=== PATIENT | female | born 1970 | race Caucasian/White ===

== ENCOUNTER 2020-09-05 12:01 | Emergency (ER) | payer MEDICAID ==
--- NOTE | 2020-09-05 14:07 | ED Physician Documentation ---
PD HPI HEENT - Stated complaint Stated Complaint: RUNNY NOSE,SOAR THROAT,FEVER - Chief complaint Chief Complaint: Resp - History obtained from History obtained from: Patient - Additional information Additional information: Healthy 50-year-old woman got sick this morning with runny nose, sore throat, body aches, low-grade fever. She is worried about coronavirus since she plans to have [place] with her family. Review of Systems Constitutional: reports: Chills, Myalgias Nose: reports: Rhinorrhea / runny nose Throat: reports: Sore throat Respiratory: denies: Cough PD PAST MEDICAL HISTORY - Present Medications Home Medications: Ambulatory Orders Medication Instructions Recorded Confirmed Sertraline [Zoloft] 1 tab PO DAILY 09/05/20 09/05/20 cloNIDine [Catapres] 0.2 mg PO DAILY 09/05/20 09/05/20 - Allergies Allergies/Adverse Reactions: Allergies Allergy/AdvReac Type Severity Reaction Status Date / Time No Known Drug Allergies Allergy Verified 09/05/20 12:25 PD ED PE NORMAL - Vitals Vital signs reviewed: Yes - General General: Alert and oriented X 3, No acute distress - Neck Neck: Supple, no meningeal sign - Neuro Neuro: Alert and oriented X 3, Normal speech Results - Vitals Vitals: Vital Signs - 24 hr 09/05/20 12:21 Temperature 36.4 C L Heart Rate 73 Respiratory 18 Rate Blood Pressure 130/71 O2 Saturation 96 Oxygen O2 Source Room air Departure - Departure Disposition: 01 Home, Self Care Clinical Impression: Upper respiratory tract infection Qualifiers: URI type: unspecified viral URI Qualified Code(s): J06.9 - Acute upper respiratory infection, unspecified Condition: Good Record reviewed to determine appropriate education?: Yes Instructions: ED Viral Syndrome Comments: You have a Covid test pending. You need to self quarantine until the result is done and negative. Do not leave your house. Do not get near anybody. The results should be done in 48 to 72 hours. We will call with a positive result, the fastest way to get a negative result for confirmation though is to go to the hospital website at [email or web address], click on the my [facility] tab and sign up for the patient portal. If any friends or family get sick and would like to have a Covid test done, but do not have signs or symptoms that would necessitate being hospitalized, we encourage testing through our coronavirus swabbing station, call [phone] to schedule an appointment.
[2020-09-05 14:33] VITALS: BP 118/67
== END 2020-09-05 14:34 | disposition home or self-care (01) ==
LOC: ED 12:01
DX: J06.9 Acute upper respiratory infection, unspecified (principal); Z20.828 Contact with and (suspected) exposure to other viral communicable diseases
CPT/HCPCS: 99282; 99283

== ENCOUNTER 2020-10-25 08:00 | Outpatient (CLI) | payer MEDICAID ==
--- NOTE | 2020-10-25 16:49 | XRAY Report ---
PROCEDURE: Knee 4 View LT INDICATIONS: STRAIN OF UNSPECIFIED MUSCLES AND TENDONS OF L LOWER LEG TECHNIQUE: 4 views of the left knee(s) were acquired. COMPARISON: None. FINDINGS: Bones: No fractures or dislocations. No suspicious bony lesions. Mild periarticular osteophyte for mation. Soft tissues: No joint effusion. No suspicious soft tissue calcifications. IMPRESSION: Osteoarthritis. No acute fracture. No osseous lesion. If symptoms and/or clinical suspic ion for pathology continue, further assessment with repeat plain films, or advanced imaging (e.g., CT , MRI, or bone scan) is recommended for further assessment. Reviewed by: Lulu Arriola MD on 10/25/2020 4:48 PM PST Approved by: Lulu Arriola MD on 10/25/2020 4:48 PM PST Station ID: [id number]
== END 2020-10-25 23:59 | disposition home or self-care (01) ==
LOC: DI.N 08:00
PROVIDERS: ATTEND Nurse Practitioner
DX: S86.912A Strain of unspecified muscle(s) and tendon(s) at lower leg level, left leg, initial encounter (principal); M17.12 Unilateral primary osteoarthritis, left knee

== ENCOUNTER 2020-12-20 11:47 | Day surgery (SDC) | payer MEDICAID ==
[2020-12-20] MEDS ORDERED: LACTATED RINGERS 1,000 ML IV ONE ×2 (11:48→13:54)
[2020-12-20 12:12] LABS: HCG UR QUAL NEGATIVE
--- NOTE | 2020-12-20 12:45 | ANESTHESIA ---
Pre-Anesthesia VS, & Labs - Diagnosis Loose stools, diarrhea - Procedure colonoscopy Vital Signs: Temp Pulse Resp BP Pulse Ox 36.7 C 83 12 138/82 H 96 12/20/20 11:48 12/20/20 11:48 12/20/20 11:48 12/20/20 11:48 12/20/20 11:48 Height: 5 ft 4 in Weight (kg): 85 kg Body Mass Index: 32.1 BMI Classification: Obese - NPO >8 hours - Is Patient ?: No Home Medications and Allergies Sertraline [Zoloft] 200 tab PO DAILY 09/05/20 cloNIDine [Catapres] 0.2 mg PO DAILY 09/05/20 Allergies/Adverse Reactions: Allergies Allergy/AdvReac Type Severity Reaction Status Date / Time No Known Drug Allergies Allergy Verified 09/05/20 12:25 Anes History & Medical History - Anesthetic History Anesthesia Complications: reports: No previous complications - Medical History Cardiovascular: reports: None Pulmonary: reports: None Gastrointestinal: reports: Other (diarrhea) Urinary: reports: Kidney stones Neuro: reports: None Musculoskeletal: reports: None Endocrine/Autoimmune: reports: None Blood Disorders: reports: None Skin: reports: None Smoking Status: Never smoker Psychosocial: reports: Depression, Anxiety History of Cancer?: No - Surgical History General: reports: Cholecystectomy Eyes Ears Nose Throat (EENT): reports: Tonsil/Adenoidectomy Urologic: reports: Ureterolithotomy (stones) Gynecologic: reports: Endometrial ablation, Dilation and currettage Exam General: Alert, Oriented x3, Cooperative, No acute distress Dental: WNL Mouth Openin Fingerbreadth Neck Mobility: Normal Mallampati classification: I Thyromental Distance: 4-6 cm Mental/Cognitive Status: Alert/Oriented X3, Normal for patient Plan Anesthesia Type: MAC Consent for Procedure(s) Verified and Reviewed: Yes Code Status: Attempt Resuscitation ASA classification: 2-Mild systemic disease Is this case an emergency?: No
[2020-12-20] MEDS ORDERED: PROPOFOL 500 MG/50 ML 500 MG/50 ML VIAL ONE (13:04)
[2020-12-20] MEDS ORDERED: LIDOCAINE-MPF 2% 5 ML VIAL ONE (13:04)
[2020-12-20] MEDS ORDERED: MIDAZOLAM 2 MG/2 ML VIAL ONE (13:05)
[2020-12-20] MEDS ORDERED: fentaNYL 100 MCG/2 ML VIAL ONE (13:05)
[2020-12-20 14:21] VITALS: BP 111/90
--- NOTE | 2020-12-20 20:17 | ANESTHESIA POST OP EVALUATION ---
Anesthesia Post Eval - Post Anesthesia Eval Vitals: Last Vital Signs Temp 36.5 C 12/20/20 14:20 Pulse 63 12/20/20 14:20 Resp 12 12/20/20 14:20 BP 111/90 H 12/20/20 14:20 Pulse Ox 100 12/20/20 14:20 CV Function Including HR & BP: Stable Pain Control: Satisfactory Nausea & Vomiting: Negative Mental Status: Baseline Respiratory Status: Airway Patent Hydration Status: Satisfactory Anesthesia Complications: None
== END 2020-12-20 11:48 | disposition home or self-care (01) ==
LOC: SDS 11:47
PROVIDERS: ATTEND Surgery
PROC: 0DBE8ZX Excision of Large Intestine, Via Natural or Artificial Opening Endoscopic, Diagnostic (ICD-10-PCS; principal; 2020-12-20 12:30)
DX: R19.7 Diarrhea, unspecified (principal); K57.30 Diverticulosis of large intestine without perforation or abscess without bleeding; F41.8 Other specified anxiety disorders; E66.9 Obesity, unspecified; Z68.32 Body mass index [BMI] 32.0-32.9, adult; Z83.79 Family history of other diseases of the digestive system; Z90.49 Acquired absence of other specified parts of digestive tract
CPT/HCPCS: 45380; 81025; J7120

== ENCOUNTER 2021-07-10 08:00 | Outpatient (CLI) | payer MEDICAID | END 2021-07-10 08:01 | disposition home or self-care (01) | LOC: LAB 08:00 | PROVIDERS: ATTEND Physician Assistant Medical | DX: N20.9 Urinary calculus, unspecified (principal) | CPT/HCPCS: 36415; 80048; 85025; 87086 ==

== ENCOUNTER 2021-07-10 13:30 | Outpatient (CLI) | payer MEDICAID ==
[2021-07-10 18:23] LABS: BASOPHILS % (AUTO) 0.3 %; EOSINOPHILS # (AUTO) 0.1 10^3/uL (0.0-0.7); EOSINOPHILS % (AUTO) 0.8 %; HCT - HEMATOCRIT 42.3 % (37.0-47.0); HGB - HEMOGLOBIN 13.1 g/dL (12.0-16.0); LYMPHOCYTES # (AUTO) 1.9 10^3/uL (1.5-3.5); LYMPHOCYTES % (AUTO) 14.4 %; MEAN CORPUSCULAR HEMOGLOBIN 25.8 pg (27.0-31.0); MEAN CORPUSCULAR VOLUME 83.4 fL (81.0-99.0); MEAN PLATELET VOLUME 10.2 fL (7.9-10.8); MONOCYTES # (AUTO) 0.6 10^3/uL (0.0-1.0); MONOCYTES % (AUTO) 4.8 %; NEUTROPHILS # (AUTO) 10.4 10^3/uL (1.5-6.6); NEUTROPHILS % (AUTO) 78.6 %; PLT - PLATELET COUNT 328 10^3/uL (130-450); RED BLOOD COUNT 5.07 10^6/uL (4.20-5.40); RED CELL DISTRIBUTION WIDTH 14.3 % (12.0-15.0); WHITE BLOOD COUNT 13.3 x10^3/uL (4.8-10.8)
[2021-07-10 18:34] LABS: CALCIUM 9.5 mg/dL (8.5-10.3); CREATININE 0.6 mg/dL (0.4-1.0); POTASSIUM 4.3 mmol/L (3.5-5.0)
== END 2021-07-10 23:59 ==
LOC: LAB.N 13:30
PROVIDERS: ATTEND Physician Assistant Medical
DX: N20.9 Urinary calculus, unspecified (principal)
CPT/HCPCS: 36415; 80048; 85025

== ENCOUNTER 2021-07-20 09:03 | Outpatient (CLI) | payer MEDICAID ==
--- NOTE | 2021-07-20 09:47 | CT Report ---
PROCEDURE: Abdomen/Pelvis WO INDICATIONS: UROLITHIASIS TECHNIQUE: Noncontrast 5 mm thick sections acquired from the diaphragms to the symphysis. 5 mm coronal and sagi ttal reformats were then performed. For radiation dose reduction, the following was used: automated exposure control, adjustment of mA and/or kV according to patient size. COMPARISON: None. FINDINGS: ABDOMEN: Lung bases: No acute findings. Heart:Normal. Liver: Normal. Gallbladder: Surgically absent Bile ducts: Normal. Pancreas: Normal. Spleen: Normal. Adrenals: Normal. Kidneys and ureters: Normal. Stomach and duodenum: Normal. Bowel: Normal. Other: No free fluid or air. Abdominal nodes: Normal. Aorta: Normal in size. IVC: Normal. Ventral wall: Normal. PELVIS: Bladder: Normal. Pelvic nodes: Normal. Inguinal regions: No hernia. Bones: No vertebral body compression fracture. No suspicious bone lesion. IMPRESSION: No urolithiasis. No evidence of urinary obstruction Status post cholecystectomy. Reviewed by: Spencer Cotton MD on 07/20/2021 9:46 AM PDT Approved by: Spencer Cotton MD on 07/20/2021 9:46 AM PDT Station ID: [id number]
== END 2021-07-20 09:04 | disposition home or self-care (01) ==
LOC: DI 09:03
PROVIDERS: ATTEND Physician Assistant Medical
DX: N20.9 Urinary calculus, unspecified (principal); Z90.49 Acquired absence of other specified parts of digestive tract

== ENCOUNTER 2021-12-01 08:00 | Outpatient (CLI) | payer MEDICAID ==
--- NOTE | 2021-12-01 14:25 | XRAY Report ---
PROCEDURE: Cervical Spine 2 View INDICATIONS: BILAT ARM NUMBNESS TECHNIQUE: 3 view(s) of the cervical spine were acquired. COMPARISON: None. FINDINGS: C-SPINE: No acute, displaced fracture or malalignment. The vertebral body heights and intervertebral disc spaces are maintained. SOFT TISSUES: No prevertebral soft tissue thickening. IMPRESSION: 1.No acute osseous abnormality of the cervical spine. Reviewed by: Leonid Gomez MD on 12/01/2021 2:24 PM PDT Approved by: Leonid Gomez MD on 12/01/2021 2:24 PM PDT Station ID: [id number]
== END 2021-12-01 23:59 | disposition home or self-care (01) ==
LOC: DI.WOS 08:00
PROVIDERS: ATTEND Physician Assistant
DX: R20.0 Anesthesia of skin (principal)

== ENCOUNTER 2022-09-11 16:29 | Emergency (ER) | payer MEDICAID, OTHER ==
[2022-09-11 16:40] VITALS: BP 122/45
[2022-09-11] MEDS ORDERED: oxyCODONE 5 MG TABLET PO STA (18:20)
--- NOTE | 2022-09-11 18:22 | ED Physician Documentation ---
History of Present Illness - Stated complaint Stated Complaint: THROAT PX/HEAT - Chief complaint Chief Complaint: Heent - History obtained from History obtained from: Patient - History of Present Illness Timing: How many days ago (several) Pain level max: 7 Pain level now: 7 - Additonal information Additional information: 52-year-old female presents to the emergency department complaining of left- sided neck pain for the past several days. She states it feels swollen and tight. She went to the walk-in clinic today and was started on Augmentin. She states that she was told to come here if she worsens because she could have a "esophageal abscess". No fevers. No chills. Worse with palpation and swallow ing. No cough. No congestion. She has a history of kidney stones, gallstones. Review of Systems Constitutional: denies: Fever, Chills Respiratory: denies: Cough GI: denies: Vomiting, Diarrhea Skin: denies: Rash PD PAST MEDICAL HISTORY - Past Medical History Past Medical History: Yes Cardiovascular: None Respiratory: None Neuro: None Endocrine/Autoimmune: None GI: Other MICROBIAL SPECIALIST: Other : Incontinence, Kidney stones HEENT: None Psych: Depression, Anxiety, Panic attacks, ADD/ADHD Musculoskeletal: None Derm: None - Past Surgical History Past Surgical History: Yes General: Cholecystectomy /MICROBIAL SPECIALIST: Endometrial ablation, Dilation and currettage HEENT: Tonsil/Adenoidectomy - Present Medications Home Medications: Ambulatory Orders Medication Instructions Recorded Confirmed Sertraline [Zoloft] 200 tab PO DAILY 09/05/20 09/11/22 cloNIDine [Catapres] 0.2 mg PO DAILY 09/05/20 09/11/22 Lisdexamfetamine Dimesylate 70 mg ORAL DAILY 09/11/22 09/11/22 [Vyvanse] Oxycodone HCl/Acetaminophen 1 - 2 each PO Q6H PRN #14 tablet 09/11/22 [Percocet 5-325 mg Tablet] MDD 6 tabs - Allergies Allergies/Adverse Reactions: Allergies Allergy/AdvReac Type Severity Reaction Status Date / Time No Known Drug Allergies Allergy Verified 09/11/22 16:34 - Social History Does the pt smoke?: No Smoking Status: Never smoker Does the pt drink ETOH?: Yes Does the pt have substance abuse?: No - Immunizations Immunizations are current?: Yes PD ED PE NORMAL - Vitals Vital signs reviewed: Yes - General General: Alert and oriented X 3, No acute distress, Well developed/nourished - HEENT HEENT: PERRL, Moist mucous membranes, Pharynx benign, Other (Tender to palpation over the left submandibular gland. Mild swelling. No skin changes. No erythema. Normal intraoral exam. No purulence. Normal phonation. No trismus. Normal oropharynx) - Neck Neck: Supple, no meningeal sign - Cardiac Cardiac: RRR, Strong equal pulses - Respiratory Respiratory: No respiratory distress, Clear bilaterally - Derm Derm: Warm and dry, No rash - Neuro Neuro: Alert and oriented X 3 - Psych Psych: Normal mood, Normal affect Results - Vitals Vitals: Vital Signs - 24 hr 09/11/22 16:34 Temperature 36.8 C Heart Rate 84 Respiratory 16 Rate Blood Pressure 122/45 L O2 Saturation 98 Oxygen O2 Source Room air PD Medical Decision Making - ED course Complexity details: considered differential, d/w patient ED course: 52-year-old female with sialoadenitis of the left submandibular gland. Has a history of kidney stones and gallstones. Likely has a stone in the submandibular gland. She will continue the Augmentin. Will place on pain medication for home. She can use warm compresses and suck on hard/sour candy. She will follow-up with [facility] or ENT. No indication for advanced imaging at this time. Patient counseled regarding signs and symptoms for which I believe and urgent re-evaluation would be necessary. Patient with good understanding of and agreement to plan and is comfortable going home at this time This document was made in part using voice recognition software. While efforts are made to proofread this document, sound alike and grammatical errors may occur. No evidence of abscess. Departure - Departure Disposition: Home, Self Care Clinical Impression: Sialoadenitis of submandibular gland Condition: Good Instructions: ED Sublingual Gland Obstruction Follow-Up: FLIP MENDOZA [Physician No Access] - Flip Mendoza DDS [Provider Admit Priv/Credential] - [facility] [Provider Group] Prescriptions: Oxycodone HCl/Acetaminophen [Percocet 5-325 mg Tablet] 1 - 2 each PO Q6H PRN #14 tablet MDD 6 tabs PRN Reason: pain Comments: Your prescription was sent to [facility] in [place]. You can take the antibiotics as previously prescribed. Please follow-up with the ENT or oral maxillofacial surgery for further care. You can apply warm compresses to the area and suck on hard/sour candies to help encourage drainage from the gland. Please return if you worsen. I am prescribing a short course of narcotic pain medication for you. These are potentially dangerous and addictive medications that should be used carefully. These medications may constipate you. Take an [id number] stool softener (docusate) twice daily with plenty of water while taking these medications. If you go 24 hours without a bowel movement, take [id number] miralax, per package instructions. Do not drink or drive while taking these medications. If you received narcotic or sedating medications while in the emergency department, do not drive for 24 hours. Store this medication in a safe, secure place and out of reach of children. It is a violation of federal law to give or sell this medication to another person or to use in a manner other than prescribed. The ED will not refill narcotic prescriptions, including prescriptions lost or stolen. To dispose of unwanted medications: 1. [facility] at [address] in [place] has a medication drop box. They accept prescription medications (in pill form) Saturday through Saturday 9:00 a.m. to 5:00 p.m. 2. The [facility] [employer] accepts prescription medications (in pill form only) for disposal year round. Call for more information. 3. Contact the [facility] for the next [facility] sponsored prescription drug collection event. , [phone], or [phone]; Discharge Date/Time: 09/11/22 18:35
== END 2022-09-11 18:35 | disposition home or self-care (01) ==
LOC: ED 16:29
DX: K11.20 Sialoadenitis, unspecified (principal)
CPT/HCPCS: 99282; A9270

== ENCOUNTER 2023-09-24 12:03 | Outpatient (CLI) | payer MEDICAID | END 2023-09-24 23:59 | disposition left against medical advice (07) | LOC: EMS 12:03 | DX: M79.631 Pain in right forearm (principal); R20.0 Anesthesia of skin; V58.5XXA Driver of pick-up truck or van injured in noncollision transport accident in traffic accident, initial encounter; Y92.413 State road as the place of occurrence of the external cause ==

== ENCOUNTER 2023-10-28 08:52 | Outpatient (CLI) | payer MEDICAID ==
[2023-10-28 12:24] LABS: BASOPHILS % (AUTO) 0.3 %; EOSINOPHILS # (AUTO) 0.1 10^3/uL (0.0-0.7); EOSINOPHILS % (AUTO) 0.9 %; HCT - HEMATOCRIT 40.2 % (37.0-47.0); HGB - HEMOGLOBIN 12.6 g/dL (12.0-16.0); LYMPHOCYTES # (AUTO) 1.7 10^3/uL (1.5-3.5); LYMPHOCYTES % (AUTO) 16.2 %; MEAN CORPUSCULAR HEMOGLOBIN 25.4 pg (27.0-31.0); MEAN CORPUSCULAR HGB CONC 31.3 g/dL (32.0-36.0); MEAN PLATELET VOLUME 10.3 fL (7.9-10.8); MONOCYTES # (AUTO) 0.5 10^3/uL (0.0-1.0); MONOCYTES % (AUTO) 4.7 %; NEUTROPHILS # (AUTO) 8.2 10^3/uL (1.5-6.6); NEUTROPHILS % (AUTO) 76.9 %; PLT - PLATELET COUNT 287 10^3/uL (130-450); RED BLOOD COUNT 4.96 10^6/uL (4.20-5.40); RED CELL DISTRIBUTION WIDTH 14.4 % (12.0-15.0); WHITE BLOOD COUNT 10.6 x10^3/uL (4.8-10.8)
[2023-10-28 12:49] LABS: ALBUMIN 4.4 g/dL (3.2-5.5); ALBUMIN/GLOBULIN RATIO 1.8 (1.0-2.2); ALKALINE PHOSPHATASE 71 IU/L (42-121); ALT ALANINE AMINOTRANSFERASE 14 IU/L (10-60); AST ASPARTATE AMINOTRANSFERASE 11 IU/L (10-42); BILIRUBIN,TOTAL 0.3 mg/dL (0.2-1.0); BUN - BLOOD UREA NITROGEN 12 mg/dL (6-20); CARBON DIOXIDE - CO2 26 mmol/L (21-32); CHLORIDE 107 mmol/L (101-111); CHOL/HDL RATIO 5.9 (<4.4); CHOLESTEROL 218 mg/dL; CREATININE 0.6 mg/dL (0.6-1.3); GFR - MDRD 105 (>89); GLUCOSE 118 mg/dL (74-104); HDL CHOLESTEROL 37 mg/dL; LDL CHOLESTEROL,CALCULATED 144 mg/dL; LDL/HDL RATIO 3.9 (<4.4); POTASSIUM 3.9 mmol/L (3.5-4.5); SODIUM 139 mmol/L (135-145); TOTAL PROTEIN 6.8 g/dL (6.4-8.9); TRIGLYCERIDES 183 mg/dL (48-352); VLDL CHOLESTEROL 37 mg/dL
[2023-10-28 12:54] LABS: THYROID STIMULATING HORMONE 2.67 uIU/mL (0.34-5.60)
[2023-10-28 13:28] LABS: RHEUMATOID FACTOR NEGATIVE (Negative)
[2023-10-30 16:08] LABS: ANTINUCLEAR ANTIBODIES IFA Negative (.)
[2023-10-30 18:07] LABS: CYCLIC CITRULLINATED PEP IGG/A 3 units (0-19)
== END 2023-10-28 08:53 | disposition home or self-care (01) ==
LOC: LAB.N 08:52
PROVIDERS: ATTEND Physician Assistant
DX: M25.549 Pain in joints of unspecified hand (principal); N95.1 Menopausal and female climacteric states
CPT/HCPCS: 36415; 80053; 80061; 83001; 83721; 84443; 85025; 86038; 86200; 86430